=== PATIENT | male | born 1990 | race Native Hawaiian/Other Pacific Islander ===

== ENCOUNTER 2018-06-19 00:52 | Emergency (ER) | payer SELFPAY ==
[2018-06-19 01:20] LABS: EOS % 0.2 % (0.0-4.0); HEMOGLOBIN 13.2 g/dL (12.0-18.0); LYMPH # 1.2 K/uL (1.0-4.3); LYMPH % 8.5 % (20.0-40.0); MEAN CELL VOLUME 87.1 fL (80.0-94.0); MEAN CORPUSCULAR HEMOGLOBIN 28.1 pg (27.0-31.0); MEAN CORPUSCULAR HGB CONC 32.3 g/dL (33.0-37.0); MEAN PLATELET VOLUME 7.6 fL (7.2-11.7); MONO # 0.6 K/uL (0.0-0.8); MONO % 4.3 % (0.0-10.0); NEUT # 12.1 K/uL (1.8-7.0); PLATELET COUNT 217 K/uL (130-400); RBC 4.68 Mil/uL (4.40-5.90); RED CELL DISTRIBUTION WIDTH 13.3 % (11.5-14.5); WHITE BLOOD COUNT 13.9 K/uL (4.8-10.8)
[2018-06-19] MEDS ORDERED: Sodium Chloride 0.9% 1,000 ML IV ONE ×3 (01:21→02:49)
--- NOTE | 2018-06-19 01:27 | C.PDOC ---
History Of Present Illness 28 y/o male brought to the ER with a friend for vomiting after "drinking too much". Friend notes that patient was at a libertarian for the last hour, and drank too much too fast. They tried to uber hope but started vomiting prompting ED visit. Friend denies trauma or known medical problems. HPI is limited due to patients condition. Time Seen by Provider: 06/19/18 01:07 EDT Chief Complaint (Nursing): Substance Abuse History Per: Other (Friend) History/Exam Limitations: intoxication Onset/Duration Of Symptoms: Hrs Current Symptoms Are (Timing): Still Present Past Medical History Reviewed: Historical Data, Nursing Documentation, Vital Signs Family History: States: No Known Family Hx - Social History Hx Alcohol Use: Yes Hx Substance Use: No Review Of Systems Review Of Systems: ROS cannot be obtained secondary to pt's inabilty to answer questions. Physical Exam - Physical Exam Appears: Non-toxic, No Acute Distress (Pt is difficult to arouse, responds to painful stimuli, ) Skin: Warm, Dry Head: Atraumatic, Normacephalic Eye(s): bilateral: Normal Inspection, EOMI Nose: Normal Oral Mucosa: Moist Neck: Normal ROM, Supple Chest: Symmetrical Cardiovascular: Rhythm Regular Respiratory: Normal Breath Sounds, No Rales, No Rhonchi, No Wheezing Gastrointestinal/Abdominal: Normal Exam, Soft, No Tenderness Extremity: Bilateral: Normal Color And Temperature ED Course And Treatment - Laboratory Results Result Diagrams: 06/19/18 01:13 EST 06/19/18 01:13 EST O2 Sat by Pulse Oximetry: 96 (RA) Progress Note: Labs and urinalysis ordered. IV fluids and Zofran administered. Case discussed with Dr Breen, agreed upon plan and treatment. On re-evaluatio n, pt is more arousable. No vomiting. On re-evaluation, pt walked to the bathroom. Vitals WNLs. Pt left prior to re-evaluation and discharge papers with three friends. 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 - Scribe Statement The provider has reviewed the documentation as recorded by the Nasrin Bowen All medical record entries made by the Scribe were at my direction and personally dictated by me. I have reviewed the chart and agree that the record accurately reflects my personal performance of the history, physical exam, medical decision making, and the department course for this patient. I have also personally directed, reviewed, and agree with the discharge instructions and disposition.
[2018-06-19 01:36] LABS: ALB/GLOB RATIO 1.5 (1.0-2.1); ALBUMIN 4.5 g/dL (3.5-5.0); ALT/SGPT 25 U/L (21-72); AST/SGOT 24 U/L (17-59); BLOOD UREA NITROGEN 13 mg/dL (9-20); CALCIUM 8.3 mg/dl (8.6-10.4); GFR NON-AFRICAN AMERICAN > 60
[2018-06-19 01:38] LABS: ACETAMINOPHEN < 10.0 ug/mL (10.0-30.0); SALICYLATE < 1.0 mg/dL 1
[2018-06-19 01:44] LABS: URINE BILIRUBIN NEGATIVE (NEGATIVE); URINE BLOOD NEGATIVE (NEGATIVE); URINE CLARITY Clear (Clear); URINE COLOR Yellow (YELLOW); URINE GLUCOSE (UA) NORMAL (Normal); URINE LEUKOCYTE ESTERASE NEG Leu/uL (Negative); URINE PROTEIN NEGATIVE (NEGATIVE); URINE UROBILINOGEN NORMAL mg/dL (0.2-1.0)
[2018-06-19 01:53] LABS: BARBITURATES, UR NEGATIVE (NEGATIVE); BENZODIAZEPINES, UR NEGATIVE (NEGATIVE); OPIATES, UR NEGATIVE (NEGATIVE); PHENCYCLIDINE, UR NEGATIVE (NEGATIVE)
[2018-06-19] MEDS ORDERED: Sodium Chloride 0.9% 1,000 ML ONE (02:56)
[2018-06-19 03:45] LABS: LYMPHOCYTE 7 % (20-40); MONOCYTE 4 % (0-10); NEUTROPHIL 89 % (50-75); PLATELET ESTIMATE NORMAL (NORMAL); TOTAL CELLS COUNTED 100
[2018-06-19 03:56] VITALS: BP 98/63; PULSE 100; RESP 16; TEMP 97.6
[2018-06-19] MEDS ORDERED: Potassium Chloride 20 mEq ER Tab PO STA (03:56)
[2018-06-19] MEDS ORDERED: Potassium Chloride 10 mEq ER Tab PO ONE (04:05)
[2018-06-19 04:14] VITALS: O2SAT 96
== END 2018-06-19 04:04 | disposition home or self-care (01) ==
LOC: C.ER 00:52
DX: F10.10 Alcohol abuse, uncomplicated (principal); Y90.7 Blood alcohol level of 200-239 mg/100 ml
CPT/HCPCS: 80053; 81001; 82948; 85025; 96361; 96374; 99285; G0480; J2405; J7030